=== PATIENT | male | born 1960 | race Caucasian/White ===

== ENCOUNTER 2023-01-21 09:50 | Outpatient (CLI) | payer OTHER, SELFPAY | END 2023-01-21 09:51 | disposition home or self-care (01) | PROVIDERS: PCP Family Medicine; Visit Provider Family Medicine | DX: I10 Essential (primary) hypertension (principal); Z13.6 Encounter for screening for cardiovascular disorders; Z12.5 Encounter for screening for malignant neoplasm of prostate | CPT/HCPCS: 80048; 80061; 84153 ==

== ENCOUNTER 2023-01-27 08:59 | Outpatient (CLI) | payer OTHER, SELFPAY | END 2023-01-27 09:00 | disposition home or self-care (01) | PROVIDERS: PCP Family Medicine; Visit Provider Nurse Practitioner Family | DX: M79.672 Pain in left foot (principal) | CPT/HCPCS: 84550; 85025; 85651; 86140; 86431 ==

== ENCOUNTER 2023-02-02 16:50 | Outpatient (CLI) | payer OTHER, SELFPAY ==
--- NOTE | 2023-02-02 16:30 | CRLHL7_ITS ---
For Patients: As a result of the Century Cures Act, medical imaging exams and procedure reports are released immediately into your electronic medical record. You may view this report before your referring provider. If you have questions, please contact your health care provider. HISTORY: Pain and swelling. TECHNIQUE: Noncontrast CT of the left foot. COMPARISON: Radiographs 01/27/2023. FINDINGS: There are areas of ligamentous and capsular calcification likely indicating calcium pyrophosphate deposition. There are ankle joint degenerative changes with mild osteophyte formation. Subchondral cystic change involving the medial and lateral aspects the talar dome likely indicates presence of grade 4 chondromalacia. Small os trigonum. Spurring of the plantar calcaneus. Degenerative changes within the midfoot and at the midfoot-forefoot junction. No significant erosive change. There is no acute fracture. Soft tissue edema is present. There is potentially some fluid along the dorsal aspect of the navicular cuneiform articulations which could relate to joint effusion or periarticular ganglion. IMPRESSION: 1. Degenerative changes. 2. No acute fracture. 3. Areas of ligamentous and capsular calcifications suggesting calcium pyrophosphate deposition. No erosive change. 4. Soft tissue swelling and soft tissue edema. 5. Some fluid appears to be present along the dorsal aspect of the navicular-cuneiform articulations and could relate to effusion or ganglion. Please note that all CT scans at this facility use dose modulation, iterative reconstruction, and/or weight-based dosing when appropriate to reduce radiation dose to as low as reasonably achievable. Dictated by Kirill Harmon MD @ 02/03/2023 6:56:52 AM (Electronically Signed)
== END 2023-02-02 16:51 | disposition home or self-care (01) ==
LOC: CT 16:52
PROVIDERS: PCP Family Medicine; Visit Provider Family Medicine
DX: M79.672 Pain in left foot (principal); M79.89 Other specified soft tissue disorders
CPT/HCPCS: 73700

== ENCOUNTER 2023-02-18 14:11 | Outpatient (CLI) | payer OTHER, SELFPAY ==
--- NOTE | 2023-02-18 14:30 | CRLHL7_ITS ---
For Patients: As a result of the Century Cures Act, medical imaging exams and procedure reports are released immediately into your electronic medical record. You may view this report before your referring provider. If you have questions, please contact your health care provider. HISTORY: Mid left foot pain TECHNIQUE: Axial sagittal and coronal T1, proton density and STIR images were obtained of the left foot without contrast administration. COMPARISON: 02/02/2023 CT. 01/27/2023 radiographs. FINDINGS: Osseous structures: Stir hyperintense bone marrow edema type signal involving the talus, anterior calcaneus, navicular, medial and cuneiforms, and the proximal 1st through 5th metatarsals. - Joint spaces: Navicular cuneiform erosions (series 8 images 13 through 15). Periarticular bone marrow edema involving the midfoot and hindfoot. Subtalar joint effusion with synovitis. - Tendons, ligaments and muscular structures: The flexor and extensor tendons at the level forefoot are intact. Lisfranc ligament is intact. - Soft tissues: No Barroso`s neuroma. The plantar aponeurosis at the forefoot level is intact. No signficant muscle atrophy. Multiple ganglia along the posterior aspect of the talonavicular joint. Diffuse superficial any soft tissues edema/swelling. IMPRESSION: Extensive periarticular bone marrow edema throughout the midfoot and hindfoot as well as navicular cuneiform erosions. Given that there is chondrocalcinosis on CT this could be due to CPPD arthropathy. Consider other inflammatory arthropathies and crystalline arthropathies as well. Recommend rheumatologic consultation. Dictated by Cesar Lee MD @ 02/19/2023 2:36:10 PM (Electronically Signed)
== END 2023-02-18 14:12 | disposition home or self-care (01) ==
LOC: MRI 14:12
PROVIDERS: PCP Family Medicine; Visit Provider Family Medicine
DX: M79.672 Pain in left foot (principal)
CPT/HCPCS: 73718

== ENCOUNTER 2023-03-30 15:47 | Outpatient (CLI) | payer OTHER, SELFPAY ==
--- NOTE | 2023-03-30 16:00 | CRLHL7_ITS ---
For Patients: As a result of the Century Cures Act, medical imaging exams and procedure reports are released immediately into your electronic medical record. You may view this report before your referring provider. If you have questions, please contact your health care provider. INDICATION: right testicle lump/tenderness COMPARISON: none TECHNIQUE: Goins scale imaging was performed of the scrotum. In addition color Doppler and spectral Doppler analysis was performed of the testes. FINDINGS: The testes demonstrate normal arterial and venous blood flow on color Doppler and spectral Doppler analysis. There is no evidence of a suspicious mass or area of inflammation. A few scattered microlithiasis noted within the testicles. The right testis measures 4.3 x 2.0 x 3.0 cm in size and the left testis measures 3.7 x 1.9 x 3.0 cm. The epididymis appears normal bilaterally. There is a septated right superior hemiscrotal hydrocele measuring 5.2 x 2.6 x 5.2 cm. IMPRESSION: Right-sided septated hydrocele measuring 5.2 x 2.6 x 5.2 cm. Mild bilateral testicular microlithiasis. No testicular mass. Dictated by Cesar Zuluaga MD @ 04/01/2023 10:10:57 AM (Electronically Signed)
== END 2023-03-30 15:48 | disposition home or self-care (01) ==
LOC: US 15:48
PROVIDERS: PCP Family Medicine; Visit Provider Family Medicine
DX: N50.89 Other specified disorders of the male genital organs (principal); N43.2 Other hydrocele
CPT/HCPCS: 76870; 93976

== ENCOUNTER 2024-01-26 16:43 | Outpatient (RCR) | payer BC, SELFPAY ==
[2024-01-26 17:00] LABS: Hematocrit 43.5 % (37.0-53.0); Hemoglobin* 14.2 gm/dL (13.5-17.5); Immature Granulocytes Abs Auto 0.01 K/uL (0.00-0.30); Immature Granulocytes Pct Auto 0.1 %; Lymphocytes Absolute Auto 2.76 K/uL (0.90-2.90); Mean Corpuscular HGB Conc 33 gm/dL (32-36); Mean Corpuscular Hemoglobin 31 pg (26-34); Mean Corpuscular Volume 93 fL (80-100); RDW Coefficient of Variation % 13.9 % (11.5-15.5); Red Blood Count 4.66 m/uL (4.30-5.90); White Blood Count* 8.53 K/uL (4.50-11.00)
[2024-01-26 17:07] LABS: Slide Review Reflex No
[2024-01-26 17:35] LABS: Aspartate Amino Transferase* 23 U/L (12-35); Creatinine* 0.8 mg/dL (0.5-1.5); Estimated Glomerular Filt Rate 100 ml/min
[2024-01-26 17:36] LABS: Uric Acid* 5.0 mg/dL (2.2-8.4)
== END 2025-01-17 11:23 | disposition home or self-care (01) ==
LOC: NPINS 16:43
PROVIDERS: PCP Family Medicine; Visit Provider Internal Medicine
DX: M10.9 Gout, unspecified (principal); M11.20 Other chondrocalcinosis, unspecified site; M79.672 Pain in left foot; I10 Essential (primary) hypertension; Z79.899 Other long term (current) drug therapy; Z51.81 Encounter for therapeutic drug level monitoring; M25.511 Pain in right shoulder; F90.9 Attention-deficit hyperactivity disorder, unspecified type; J44.9 Chronic obstructive pulmonary disease, unspecified; K21.9 Gastro-esophageal reflux disease without esophagitis
CPT/HCPCS: 82565; 84450; 84550; 85025

== ENCOUNTER 2024-04-12 15:15 | Outpatient (CLI) | payer BC, SELFPAY ==
--- NOTE | 2024-04-12 15:00 | CRLHL7_ITS ---
For Patients: As a result of the Century Cures Act, medical imaging exams and procedure reports are released immediately into your electronic medical record. You may view this report before your referring provider. If you have questions, please contact your health care provider. INDICATION: Lung cancer screening. Smoking history. TECHNIQUE: CT chest low dose without contrast. COMPARISON: None. FINDINGS: Pulmonary nodules: None. Lungs and pleural spaces: Left upper lobe wedge resection upper lobe predominant centrilobular and paraseptal emphysema, including large bulla in the paramediastinal region. No suspicious lung nodules. Heart and vasculature: Heart size is normal. Moderate calcification of the RCA and minimal calcification of the LAD. Thoracic aorta and pulmonary artery are normal in caliber. Lymph nodes and mediastinum: No mediastinal, hilar, or axillary adenopathy. Chest wall: Gynecomastia. Clips in the left axilla Upper abdomen: Bilateral lesions in the kidneys, which are intermediate in density. Left renal cyst. Nonobstructing nephrolith in the left kidney. Bones: Mild degenerative disease of the spine. IMPRESSION: No suspicious lung lesions. Lung-RADS Category 1: NEGATIVE. Continue annual screening with LDCT in 12 months. Intermediate density renal lesions. Consider further evaluation with nonemergent renal ultrasound. Please note that all CT scans at this facility use dose modulation, iterative reconstruction, and/or weight-based dosing when appropriate to reduce radiation dose to as low as reasonably achievable. Dictated by Rita Perez MD @ 04/13/2024 3:13:39 PM (Electronically Signed)
== END 2024-04-12 15:16 | disposition home or self-care (01) ==
LOC: CT 15:15
PROVIDERS: PCP Family Medicine; Visit Provider Family Medicine
DX: Z12.2 Encounter for screening for malignant neoplasm of respiratory organs (principal); N28.9 Disorder of kidney and ureter, unspecified; Z87.891 Personal history of nicotine dependence
CPT/HCPCS: 71271

== ENCOUNTER 2024-07-14 09:01 | Outpatient (CLI) | payer BC, SELFPAY | END 2024-07-14 09:02 | disposition home or self-care (01) | PROVIDERS: PCP Family Medicine; Visit Provider Family Medicine | DX: I10 Essential (primary) hypertension (principal); Z13.6 Encounter for screening for cardiovascular disorders; Z12.5 Encounter for screening for malignant neoplasm of prostate | CPT/HCPCS: 80048; 80061; G0103 ==

== ENCOUNTER 2024-07-26 13:34 | Outpatient (CLI) | payer BC, SELFPAY ==
[2024-07-26 14:56] VITALS: BP 147/96; PULSE 103
--- NOTE | 2024-07-26 21:52 | W.PM.STED ---
Stress Test Note Date Date Seen: 07/26/24 Date of test: 07/26/24 Providers Primary care provider: Cesar Ulloa Stress test physician: Brittney Mccormick Stress Test Note Stress test ordered: Stress Echo Indication for test: Chest pain Stress test medicine: None Results discussion: Resting EKG: Sinus rhythm, 91 beats per minute. Flipped T-waves lead 3, nonspecific changes AVF. Resting blood pressure: 154/92 Stress test: Patient is consented on a treadmill stress echo following standard Monty protocol. Was able to exercise to 7 minutes 38 seconds, needing to stop due to meeting exertional capacity with his legs feeling tired and some shortness of breath. He had no chest pain during this stress test. He had an equivocal aunt of 9.1 Mets with this activity. He had a maximum heart rate of 166 beats per minute which was 124% of a calculated target heart rate of 133, also over maximum heart rate of 157. His rate pressure product was thirty-two thousand two hundred four. He had a maximal blood pressure of 190 for during 98 measured at the end of 2nd stage. Blood pressure did recover during rest. He had worsening of his T-wave changes in ST segments in 3 and AVF, not definitively diagnostic though for active ischemia. Await echo images to couple this for a full formal diagnostic. Impression: Subjectively negative, objectively negative EKG portion of this stress test. Follow up suggested: Patient left in stable condition. He is aware that he will be contacted by his primary once the echo images have been read by Cardiology.
== END 2024-07-26 13:35 | disposition home or self-care (01) ==
LOC: STRESS 13:34
PROVIDERS: PCP Family Medicine; Visit Provider Family Medicine
DX: R07.9 Chest pain, unspecified (principal)
CPT/HCPCS: 93016; 93325; 93351

== ENCOUNTER → 2024-11-29 10:48 | Outpatient (RCR) | payer BC, SELFPAY ==
[2023-09-23 18:41] LABS: Basophils Absolute Auto 0.06 K/uL (0.00-0.30); Basophils Percent Auto 0.8 % (0.0-3.0); Eosinophils Absolute Auto 0.08 K/uL (0.00-0.50); Eosinophils Percent Auto 1.1 % (0.0-7.0); Hematocrit 43.8 % (37.0-53.0); Hemoglobin* 14.4 gm/dL (13.5-17.5); Immature Granulocytes Abs Auto 0.01 K/uL (0.00-0.30); Immature Granulocytes Pct Auto 0.1 %; Mean Corpuscular HGB Conc 33 gm/dL (32-36); Mean Corpuscular Hemoglobin 30 pg (26-34); Mean Corpuscular Volume 92 fL (80-100); Monocytes Percent Auto 6.9 % (0.0-11.0); Neutrophils Absolute Auto 3.25 K/uL (1.7-7.0); Neutrophils Percent Auto 43.1 % (42.0-72.0); Platelet Count* 240 K/uL (140-440); Red Blood Count 4.76 m/uL (4.30-5.90); White Blood Count* 7.54 K/uL (4.50-11.00)
[2023-09-23 19:09] LABS: Slide Review Reflex No
[2023-09-23 19:15] LABS: Aspartate Amino Transferase* 26 U/L (12-35); Creatinine* 0.8 mg/dL (0.5-1.5); Estimated Glomerular Filt Rate 100 ml/min; Uric Acid* 5.4 mg/dL (2.2-8.4)
[2023-11-20 16:42] LABS: Basophils Absolute Auto 0.04 K/uL (0.00-0.30); Basophils Percent Auto 0.6 % (0.0-3.0); Eosinophils Absolute Auto 0.06 K/uL (0.00-0.50); Eosinophils Percent Auto 0.9 % (0.0-7.0); Hematocrit 42.4 % (37.0-53.0); Hemoglobin* 13.8 gm/dL (13.5-17.5); Lymphocytes Absolute Auto 2.56 K/uL (0.90-2.90); Lymphocytes Percent Auto 38.6 % (20-44); Mean Corpuscular HGB Conc 33 gm/dL (32-36); Mean Corpuscular Hemoglobin 31 pg (26-34); Mean Corpuscular Volume 94 fL (80-100); Monocytes Percent Auto 6.9 % (0.0-11.0); Neutrophils Absolute Auto 3.52 K/uL (1.7-7.0); Platelet Count* 228 K/uL (140-440); Red Blood Count 4.53 m/uL (4.30-5.90); White Blood Count* 6.64 K/uL (4.50-11.00)
[2023-11-20 16:50] LABS: Slide Review Reflex No
[2023-11-20 16:59] LABS: Creatinine* 0.8 mg/dL (0.5-1.5); Estimated Glomerular Filt Rate 100 ml/min
[2023-11-20 17:00] LABS: Aspartate Amino Transferase* 28 U/L (12-35); Uric Acid* 5.2 mg/dL (2.2-8.4)
[2023-12-21 16:10] LABS: Basophils Absolute Auto 0.03 K/uL (0.00-0.30); Basophils Percent Auto 0.4 % (0.0-3.0); Eosinophils Absolute Auto 0.04 K/uL (0.00-0.50); Eosinophils Percent Auto 0.5 % (0.0-7.0); Hematocrit 41.8 % (37.0-53.0); Hemoglobin* 13.5 gm/dL (13.5-17.5); Immature Granulocytes Abs Auto 0.04 K/uL (0.00-0.30); Immature Granulocytes Pct Auto 0.5 %; Lymphocytes Absolute Auto 2.74 K/uL (0.90-2.90); Lymphocytes Percent Auto 37.4 % (20-44); Mean Corpuscular HGB Conc 32 gm/dL (32-36); Mean Corpuscular Hemoglobin 30 pg (26-34); Mean Corpuscular Volume 93 fL (80-100); Monocytes Percent Auto 5.9 % (0.0-11.0); Neutrophils Absolute Auto 4.04 K/uL (1.7-7.0); Neutrophils Percent Auto 55.3 % (42.0-72.0); Platelet Count* 214 K/uL (140-440); Red Blood Count 4.49 m/uL (4.30-5.90); White Blood Count* 7.32 K/uL (4.50-11.00)
[2023-12-21 16:24] LABS: Slide Review Reflex No
[2023-12-21 16:34] LABS: Aspartate Amino Transferase* 26 U/L (12-35); Creatinine* 0.8 mg/dL (0.5-1.5); Estimated Glomerular Filt Rate 100 ml/min
[2023-12-21 16:35] LABS: Uric Acid* 4.1 mg/dL (2.2-8.4)
== END | disposition home or self-care (01) ==
LOC: LAB 09-23 17:46
PROVIDERS: PCP Family Medicine; Visit Provider Internal Medicine
DX: M10.9 Gout, unspecified (principal)
CPT/HCPCS: 36415; 82565; 84450; 84550; 85025

== ENCOUNTER 2025-05-24 14:51 | Outpatient (CLI) | payer BC, SELFPAY ==
--- NOTE | 2025-05-24 16:00 | CRLHL7_ITS ---
For Patients: As a result of the Century Cures Act, medical imaging exams and procedure reports are released immediately into your electronic medical record. You may view this report before your referring provider. If you have questions, please contact your health care provider. INDICATION: Lung cancer screening. History of smoking. High risk patient with smoking history. TECHNIQUE: Low-dose lung cancer screening non-contrast CT chest. Dose reduction techniques were used. COMPARISON: March 2024 FINDINGS: Lungs and Airways: Emphysema. Left upper lobe bullous change. 1 millimeter right upper lobe indeterminate pulmonary nodule, axial image 45. No mass or consolidation. No endoluminal lesion. Heart and Mediastinum: The visualized portions of the thyroid are normal. No axillary or supraclavicular lymphadenopathy. No mediastinal, hilar or retrocrural lymphadenopathy. Normal heart size. Normal caliber aorta. Atherosclerotic and coronary artery calcifications. Pleura: The pleural spaces are normal. Abdomen: Renal exophytic foci, incompletely characterized on this exam. Some measure non simple attenuation. Nonobstructing 3 millimeter left renal stone. Bones and Soft Tissues: Thoracic spondylosis. IMPRESSION: 1. 1 millimeter right upper lobe indeterminate pulmonary nodule. Lung rads 2. 2. No intrathoracic mass or consolidation. 3. Bilateral exophytic renal foci some of which do not measure simple attenuation. Incompletely characterized on this exam. Recommend further assessment with nonemergent renal protocol CT/MRI if not previously worked up. (Lungrads 1/2) Continue annual screening, if eligible, with low-dose CT chest in 12 months. Please note that all CT scans at this facility use dose modulation, iterative reconstruction, and/or weight-based dosing when appropriate to reduce radiation dose to as low as reasonably achievable. Dictated by Cesar Joseph MD @ 05/24/2025 6:02:53 PM (Electronically Signed)
== END 2025-05-24 14:52 | disposition home or self-care (01) ==
PROVIDERS: PCP Family Medicine; Visit Provider Family Medicine
DX: Z12.2 Encounter for screening for malignant neoplasm of respiratory organs (principal); R91.8 Other nonspecific abnormal finding of lung field; Z87.891 Personal history of nicotine dependence
CPT/HCPCS: 71271

== ENCOUNTER 2025-06-13 15:49 | Outpatient (CLI) | payer BC, SELFPAY ==
--- NOTE | 2025-06-13 16:00 | CRLHL7_ITS ---
For Patients: As a result of the 21st Century Cures Act, medical imaging exams and procedure reports are released immediately into your electronic medical record. You may view this report before your referring provider. If you have questions, please contact your health care provider. INDICATION: Renal mass TECHNIQUE: Volumetric helical scanning of the abdomen was performed initially without IV contrast material. 92 cc of Isovue 370 contrast material were then injected IV and scanning of the kidneys was performed during the arterial phase of contrast enhancement followed by scanning of the abdomen and pelvis during the nephrographic phase of contrast enhancement. Coronal and sagittal reconstructions were obtained. COMPARISON: Abdomen/pelvis CT of 09/24/2015 FINDINGS: Renal parenchymal cysts are present bilaterally. A number of hyperdense renal parenchymal cysts are present bilaterally. These demonstrate no obvious contrast enhancement. Four small left renal collecting system stones are demonstrated, the largest measuring up to 4 mm. A 2 mm right renal stone is demonstrated. No ureteral stone or obstruction is noted. Mild bladder wall thickening is demonstrated. Mild prostate enlargement is noted. Mild fatty change is demonstrated in the liver. The liver is normal in size and shape. A subcentimeter low-attenuation lesion in the liver on image 27 of series 7 is demonstrated and presumably represents a cyst. No bile duct dilation is evident. The spleen is within normal limits. An unchanged 1.5 cm left adrenal adenoma is noted. The pancreas is within normal limits. No free fluid is evident. The bowel is unremarkable except for colonic diverticulosis. The lung bases are clear. The heart is normal in size. Calcified coronary arterial plaque is noted. IMPRESSION: 1. Renal parenchymal cysts bilaterally, including a number of hyperdense cysts. No solid renal mass evident. 2. Small renal collecting system stones bilaterally. 3. Mild prostate enlargement and mild bladder wall thickening. 4. Mild fatty change in liver and apparent subcentimeter liver cyst. 5. Unchanged 1.5 cm left adrenal adenoma. 6. Coronary artery disease. Please note that all CT scans at this facility use dose modulation, iterative reconstruction, and/or weight-based dosing when appropriate to reduce radiation dose to as low as reasonably achievable. Dictated by Aayush Humphrey MD @ 06/14/2025 2:41:26 PM (Electronically Signed)
[2025-06-13 16:17] LABS: Creatinine* 0.8 mg/dL (0.5-1.5); Estimated Glomerular Filt Rate 99 ml/min
== END 2025-06-13 15:50 | disposition home or self-care (01) ==
LOC: CT 15:50
PROVIDERS: PCP Family Medicine; Visit Provider Family Medicine
DX: N28.1 Cyst of kidney, acquired (principal); N20.0 Calculus of kidney; N40.1 Benign prostatic hyperplasia with lower urinary tract symptoms; N32.9 Bladder disorder, unspecified; K76.0 Fatty (change of) liver, not elsewhere classified; K76.89 Other specified diseases of liver; D35.00 Benign neoplasm of unspecified adrenal gland; I25.10 Atherosclerotic heart disease of native coronary artery without angina pectoris
CPT/HCPCS: 36415; 74170; 82565; Q9967